=== PATIENT | male | born 1940 | race Caucasian/White ===

== ENCOUNTER → 2016-12-09 | Outpatient (CLI) | payer OTHER | LOC: RAD 13:30 | PROVIDERS: ATTEND Clinical Nurse Specialist Adult Health | DX: M25.511 Pain in right shoulder (principal) ==

== ENCOUNTER 2017-08-17 15:05 | Observation (INO) | payer OTHER, MEDICARE ==
--- NOTE | 2017-08-17 15:43 | ER Document Report ---
ED Medical Screen (RME) - General Chief Complaint: Dizziness Stated Complaint: DIZZINESS Time Seen by Provider: 08/17/17 15:42 Notes: Patient states yesterday he went to stand and his knees buckled and he fell to the ground but only made it on his knees. He denies head injury. Patient is on a blood thinner, Xarelto. Patient went to see his primary care physician at the [facility] today for a routine checkup. Primary care physician felt the patient had altered mental status and referred him to the emergency department. Patient states that he just feels weak and nauseated. TRAVEL OUTSIDE OF THE [place] IN LAST 30 DAYS: No - Related Data Allergies/Adverse Reactions: Influenza Virus Vaccines [Influenza Virus Vaccine] Allergy (Severe, Verified 15:07) severe flu symptoms Past Medical History - Past Medical History Cardiac Medical History: Reports: Hx Hypercholesterolemia, Hx Hypertension - medicated Denies: Hx Heart Attack Pulmonary Medical History: Reports: Hx COPD Denies: Hx Asthma Neurological Medical History: Denies: Hx Seizures Endocrine Medical History: Reports: Hx Diabetes Mellitus Type 2 GI Medical History: Denies: Hx Hiatal Hernia, Hx Ulcer Musculoskeltal Medical History: Reports Hx Arthritis Psychiatric Medical History: Denies: Hx Depression Past Surgical History: Reports: Hx Cholecystectomy. Denies: Hx Open Heart Surgery - Immunizations Hx Diphtheria, Pertussis, Tetanus Vaccination: Yes Physical Exam - Vital signs Vitals: Temp Pulse Resp BP Pulse Ox 98.4 F 90 17 152/71 H 97 08/17/17 15:15 08/17/17 15:15 08/17/17 15:15 08/17/17 15:15 08/17/17 15:15 Course - Vital Signs Vital signs: Temp Pulse Resp BP Pulse Ox 98.4 F 90 17 152/71 H 97 08/17/17 15:15 08/17/17 15:15 08/17/17 15:15 08/17/17 15:15 08/17/17 15:15
--- NOTE | 2017-08-17 16:11 | RADIOLOGY REPORT (SQ) ---
EXAM DESCRIPTION: CT HEAD WITHOUT COMPLETED DATE/TIME: 08/17/2017 3:57 pm REASON FOR STUDY: fall/ams COMPARISON: CT brain 11/29/2006 TECHNIQUE: Axial images acquired through the brain without intravenous contrast. Images reviewed wi th bone, brain and subdural windows. Images stored on PACS. All CT scanners at this facility use dose modulation, iterative reconstruction, and/or weight based d osing when appropriate to reduce radiation dose to as low as reasonably achievable (ALARA). [facility]: Dose Right [facility]: CareDose [facility]: Dose Right [facility]: Teradose 4D [facility]: Smart mDialog RADIATION DOSE: CT Rad equipment meets quality standard of care and radiation dose reduction techniq ues were employed. CTDIvol: 64.6 mGy. DLP: 1292 mGy-cm. mGy. LIMITATIONS: None. FINDINGS: VENTRICLES: Normal size and contour. CEREBRUM: No masses. No hemorrhage. No midline shift. No evidence for acute infarction. Normal gra y/white matter differentiation. No areas of low density in the white matter. CEREBELLUM: No masses. No hemorrhage. No alteration of density. No evidence for acute infarction. EXTRAAXIAL SPACES: No fluid collections. No masses. ORBITS AND GLOBE: No intra- or extraconal masses. Normal contour of globe without masses. CALVARIUM: No fracture. PARANASAL SINUSES: No fluid or mucosal thickening. SOFT TISSUES: No mass or hematoma. OTHER: Heavy atherosclerotic calcification of the distal left intracranial vertebral artery and basil ar artery, heavy atherosclerotic calcification of the parasellar carotid arteries. Advanced left fac et arthropathy at C2-3 IMPRESSION: No acute findings EVIDENCE OF ACUTE STROKE: NO. COMMENT: Quality ID # [id number]: Final reports with documentation of one or more dose reduction techniques (e.g., Automated exposure control, adjustment of the mA and/or kV according to patient size, use of iterative reconstruction technique) TECHNICAL DOCUMENTATION: JOB ID: [id number] [employer]- All Rights Reserved
[2017-08-17 16:54] LABS: ABSOLUTE BASOPHILS # (AUTO) 0.1 10^3/uL (0.0-0.2); ABSOLUTE EOSINOPHILS # (AUTO) 0.2 10^3/uL (0.0-0.6); ABSOLUTE LYMPHOCYTES (AUTO) 3.3 10^3/uL (0.5-4.7); ABSOLUTE MONOCYTES (AUTO) 0.9 10^3/uL (0.1-1.4); ABSOLUTE NEUT (AUTO) 4.8 10^3/uL (1.7-8.2); BASOPHILS % (AUTO) 0.6 % (0-2); EOSINOPHILS % (AUTO) 2.4 % (0-6); HEMATOCRIT 46.5 % (37.9-51.0); HEMOGLOBIN 15.8 g/dL (13.5-17.0); LYMPHOCYTES % (AUTO) 35.8 % (13-45); MEAN CORPUSCULAR HEMOGLOBIN 30.5 pg (27.0-33.4); MEAN CORPUSCULAR VOLUME 90 fl (80-97); PLATELET COUNT 303 10^3/uL (150-450); RED BLOOD COUNT 5.19 10^6/uL (4.35-5.55); RED CELL DISTRIBUTION WIDTH 14.2 % (11.5-14.0); SEGMENTED NEUTROPHILS % (AUTO) 51.2 % (42-78); TOTAL CELLS COUNTED % (AUTO) 100 %; WHITE BLOOD COUNT 9.3 10^3/uL (4.0-10.5)
[2017-08-17 17:02] LABS: APPEARANCE,URINE SLIGHTLY-CLOUDY; BILIRUBIN,URINE NEGATIVE (NEGATIVE); COLOR,URINE YELLOW; GLUCOSE, URINE >=500 mg/dL (NEGATIVE); KETONES,URINE NEGATIVE (NEGATIVE); LEUKOCYTE ESTERASE,URINE NEGATIVE (NEGATIVE); NITRITE,URINE NEGATIVE (NEGATIVE); PROTEIN,URINE NEGATIVE (NEGATIVE); URINE SPECIFIC GRAVITY 1.013; UROBILINOGEN,URINE NEGATIVE mg/dL (<2.0)
[2017-08-17 17:12] LABS: ALANINE AMINOTRANSFERASE 26 U/L (21-72); ALBUMIN 4.6 g/dL (3.5-5.0); ALKALINE PHOSPHATASE 102 U/L (38-126); ANION GAP 10 (5-19); ASPARTATE AMINO TRANSFERASE 7 U/L (17-59); BILIRUBIN,DIRECT 0.2 mg/dL (0.0-0.4); BILIRUBIN,TOTAL 0.5 mg/dL (0.2-1.3); BLOOD UREA NITROGEN 25 mg/dL (7-20); CALCIUM 10.9 mg/dL (8.4-10.2); CARBON DIOXIDE 29 mmol/L (22-30); CHLORIDE 102 mmol/L (98-107); GLUCOSE 186 mg/dL (75-110); TOTAL PROTEIN 7.4 g/dL (6.3-8.2)
--- NOTE | 2017-08-17 17:26 | ER Document Report ---
ED Dizziness/Weakness - General Chief Complaint: Dizziness Stated Complaint: DIZZINESS Time Seen by Provider: 08/17/17 15:42 Notes: Patient states that yesterday he was dizzy. Had a near syncopal episode. Never had this happen before. Chest pain, fever, chills, sweats pretty. Today he began to have some nausea. Does not know why he feels this way. Does have a history of diabetes. Followed by at the [facility]. Was seen over there and sent here for further evaluation. TRAVEL OUTSIDE OF THE [place] IN LAST 30 DAYS: No - HPI Patient complains to provider of: Dizziness, Near-syncope Onset: Yesterday Onset/Duration: Gradual Severity: Moderate Pain Level: 3 Context: Vertigo. denies: Chronic dizziness, Trauma Associated symptoms: Nausea Exacerbated by: denies: Change in position, Movement of head Baseline gait: Uses a cane - Related Data Allergies/Adverse Reactions: Influenza Virus Vaccines [Influenza Virus Vaccine] Allergy (Severe, Verified 15:07) severe flu symptoms Past Medical History - General Information source: Patient - Social History Smoking Status: Former Smoker Chew tobacco use (# tins/day): No Frequency of alcohol use: None Drug Abuse: None Lives with: Family Family History: CVA, Hypertension Patient has suicidal ideation: No Patient has homicidal ideation: No - Past Medical History Cardiac Medical History: Reports: Hx Hypercholesterolemia, Hx Hypertension - medicated Denies: Hx Heart Attack Pulmonary Medical History: Reports: Hx COPD Denies: Hx Asthma Neurological Medical History: Denies: Hx Seizures Endocrine Medical History: Reports: Hx Diabetes Mellitus Type 2 Renal/ Medical History: Denies: Hx Peritoneal Dialysis GI Medical History: Denies: Hx Hiatal Hernia, Hx Ulcer Musculoskeltal Medical History: Reports Hx Arthritis Psychiatric Medical History: Denies: Hx Depression Past Surgical History: Reports: Hx Cholecystectomy. Denies: Hx Open Heart Surgery - Immunizations Hx Diphtheria, Pertussis, Tetanus Vaccination: Yes Review of Systems - Review of Systems Constitutional: Weakness. denies: Fever, Malaise EENT: denies: Blurred vision, Double vision, Nose congestion, Mouth swelling Cardiovascular: Syncope, Dizziness, Lightheaded. denies: Chest pain, Palpitations, Heart racing, Orthopnea, Dyspnea Respiratory: denies: Cough, Hurts to breathe, Hemoptysis, Short of breath Gastrointestinal: Nausea. denies: Abdominal pain, Diarrhea, Vomiting, Constipation, Blood streaked bowels Genitourinary: denies: Dysuria, Discharge, Flank pain Musculoskeletal: Back pain. denies: Gout, Joint pain, Joint swelling, Muscle stiffness, Neck pain Skin: denies: Dryness, Lesions, Lumps, Rash Hematologic/Lymphatic: Blood clots. denies: Anemia, Easy bleeding, Easy bruising Neurological/Psychological: Weakness. denies: Dementia, Depression, Lost consciousness, Speech impairment, Numbness Physical Exam - Vital signs Vitals: Temp Pulse Resp BP Pulse Ox 98.4 F 90 17 152/71 H 97 08/17/17 15:15 08/17/17 15:15 08/17/17 15:15 08/17/17 15:15 08/17/17 15:15 Interpretation: Normal - General General appearance: Appears well, Alert - HEENT Head: Normocephalic, Atraumatic Eyes: Normal Pupils: PERRL - Respiratory Respiratory status: No respiratory distress Chest status: Nontender Breath sounds: Normal Chest palpation: Normal - Cardiovascular Rhythm: Regular Heart sounds: Normal auscultation Murmur: No - Abdominal Inspection: Normal Distension: No distension Bowel sounds: Normal Tenderness: Nontender Organomegaly: No organomegaly - Back Back: Normal, Nontender - Extremities General upper extremity: Normal inspection, Nontender, Normal color, Normal ROM , Normal temperature General lower extremity: Normal inspection, Nontender, Normal color, Normal ROM , Normal temperature, Normal weight bearing. No: Victor Hugo's sign - Neurological Neuro grossly intact: Yes Cognition: Normal Orientation: AAOx4 [place] Coma Scale Eye Opening: Spontaneous [place] Coma Scale Verbal: Oriented [place] Coma Scale Motor: Obeys Commands [place] Coma Scale Total: 15 Speech: Normal Motor strength normal: LUE, RUE, LLE, RLE Sensory: Normal - Psychological Associated symptoms: Normal affect, Normal mood - Skin Skin Temperature: Warm Skin Moisture: Dry Skin Color: Normal Course - Re-evaluation Re-evalutation: 08/17/17 18:03 Patient with elevated potassium. Started on Kayexalate and calcium gluconate. IV fluids. Patient will need to be admitted to have his labs rechecked. Does not appear to be in acute renal failure. Creatinine is slightly elevated than prior. EKG unremarkable. Consulted hospitalist, Dr. Gonzalez who agrees to admit at this time. - Vital Signs Vital signs: Temp Pulse Resp BP Pulse Ox 98.4 F 90 17 152/71 H 97 08/17/17 15:15 08/17/17 15:15 08/17/17 15:15 08/17/17 15:15 08/17/17 15:15 - Laboratory Result Diagrams: 08/17/17 16:25 08/17/17 16:25 Laboratory results interpreted by me: 08/17/17 08/17/17 08/17/17 16:25 16:25 16:30 RDW 14.2 H Potassium 6.4 H* BUN 25 H Creatinine 1.42 H Est GFR ( Amer) 58 L Est GFR (Non-Af Amer) 48 L Glucose 186 H Calcium 10.9 H AST 7 L Urine Glucose (UA) >=500 H Urine Ascorbic Acid 40 H - EKG Interpretation by Me EKG shows normal: Sinus rhythm, Stuart, Intervals, QRS Complexes, ST-T Waves Discharge - Discharge Clinical Impression: Hyperkalemia, Near syncope Disposition: ADMITTED INPATIENT Admitting Provider: Dr. Gonzalez Unit Admitted: Telemetry - Dr. Gonzalez
[2017-08-17 17:28] LABS: POTASSIUM 6.4 mmol/L (3.6-5.0)
[2017-08-17] MEDS ORDERED: NORMAL SALINE 1000 ML 1,000 ML IV ONE (17:58)
[2017-08-17] MEDS ORDERED: SODIUM POLYSTYRENE SULFONATE 15 GM/60 ML PO ONE (17:58)
[2017-08-17] MEDS ORDERED: CALCIUM GLUCONATE 1000 MG/10 ML INJ IV ONE (17:58)
[2017-08-17 18:21] LABS: INTERNATIONAL RATION (INR) 1.24; PARTIAL THROMBOPLASTIN TIME 33.3 SEC (23.5-35.8); PROTHROMBIN TIME 16.5 SEC (11.4-15.4)
[2017-08-17] MEDS ORDERED: ACETAMINOPHEN 325 MG TABLET PO PRN (18:35)
[2017-08-17] MEDS ORDERED: MAG HYDROX/AL HYDROX/SIMETH SUSP 30 ML UDCUP PO PRN (18:35)
[2017-08-17] MEDS ORDERED: OXYCODONE-ACETAMINOPHEN 5-325 MG TABLET PO PRN (18:35)
[2017-08-17] MEDS ORDERED: TEMAZEPAM 15 MG CAPSULE PO PRN (18:35)
[2017-08-17] MEDS ORDERED: MAGNESIUM HYDROXIDE SUSP 30 ML UDCUP PO PRN (18:35)
[2017-08-17] MEDS ORDERED: DIAZEPAM 5 MG TABLET PO PRN (18:40)
[2017-08-17] MEDS ORDERED: DEXTROSE 50%-WATER 25 GM/50 ML DISP.SYRIN IV PRN ×2 (18:58)
[2017-08-17] MEDS ORDERED: INSULIN LISPRO 100 UNIT/ML 3 ML VIAL SUBCUT PRN (18:58)
[2017-08-17] MEDS ORDERED: GLUCAGON,HUMAN RECOMB 1 MG INJ IM PRN (18:58)
[2017-08-17] MEDS ORDERED: DEXTROSE 40% GEL 15 GM TUBE PO PRN ×2 (18:58)
--- NOTE | 2017-08-17 19:02 | PDOC H&P ---
History of Present Illness Admission Date/PCP: 08/17/17 18:24 Patient complains of: dizziness History of Present Illness: JOHANNE FREEMAN is a 77 year old male with a one day history of dizziness with standing. he reports a "loss of equilibrium". He experiences a "floating" sensation. Other than standing, he knows of no other exacerbating factors. Sitting or laying supine relieves his symptoms. He experienced nausea without vomiting. He does not have a history of similar symptoms. He has no hearing or other visual complaints. He describes a "buzzing" in his ears since [place] War. He was seen by his primary care at the [facility], who recommended that he come to the ED for further evaluation. Past Medical History Cardiac Medical History: Reports: Hyperlipidema, Hypertension - medicated Denies: Myocardial Infarction Pulmonary Medical History: Reports: Chronic Obstructive Pulmonary Disease (COPD) Denies: Asthma Neurological Medical History: Denies: Seizures Endocrine Medical History: Reports: Diabetes Mellitus Type 2 GI Medical History: Denies: Hiatal Hernia Musculoskeltal Medical History: Reports: Arthritis Psychiatric Medical History: Denies: Depression Hematology: Denies: Anemia, Sickle Cell Disease Past Surgical History Past Surgical History: Reports: Cholecystectomy Social History Information Source: Patient Lives with: Family Smoking Status: Former Smoker Frequency of Alcohol Use: None Hx Recreational Drug Use: No Drugs: None Hx Prescription Drug Abuse: No - Advance Directive Resuscitation Status: Full Code Family History Family History: CVA, Hypertension Parental Family History Reviewed: No Children Family History Reviewed: No Sibling(s) Family History Reviewed.: No Medication/Allergy Allergies/Adverse Reactions: Influenza Virus Vaccines [Influenza Virus Vaccine] Allergy (Severe, Verified 15:07) severe flu symptoms Review of Systems Constitutional: ABSENT: chills, fever(s) Cardiovascular: ABSENT: chest pain, dyspnea on exertion, orthropnea, palpitations Respiratory: ABSENT: cough, dyspnea Gastrointestinal: PRESENT: nausea. ABSENT: abdominal pain, vomiting Neurological: ABSENT: abnormal gait, abnormal speech, confusion, dizziness, focal weakness, syncope Psychiatric: ABSENT: anxiety, depression, homidical ideation, suicidal ideation Physical Exam Vital Signs: Temp Pulse Resp BP Pulse Ox 98.4 F 90 17 152/71 H 97 08/17/17 15:15 08/17/17 15:15 08/17/17 15:15 08/17/17 15:15 08/17/17 15:15 General appearance: PRESENT: no acute distress, obese Head exam: PRESENT: atraumatic, normocephalic Eye exam: PRESENT: EOMI, PERRLA Mouth exam: PRESENT: moist, neck supple Neck exam: PRESENT: full ROM. ABSENT: carotid bruit, JVD, meningismus, tenderness Respiratory exam: PRESENT: clear to auscultation markos, unlabored. ABSENT: accessory muscle use Cardiovascular exam: PRESENT: RRR. ABSENT: diastolic murmur, rubs, systolic murmur GI/Abdominal exam: PRESENT: normal bowel sounds, soft. ABSENT: distended, guarding, mass, organolmegaly, rebound, tenderness Rectal exam: PRESENT: deferred Extremities exam: PRESENT: +1 edema Musculoskeletal exam: PRESENT: ambulatory, normal inspection Neurological exam: PRESENT: alert, awake, oriented to person, oriented to place , oriented to time, oriented to situation, CN II-XII grossly intact. ABSENT: motor sensory deficit Psychiatric exam: PRESENT: appropriate affect, normal mood. ABSENT: homicidal ideation, suicidal ideation Skin exam: PRESENT: dry, intact, warm. ABSENT: cyanosis, rash Results Impressions: Head CT 08/17/17 15:42 IMPRESSION: No acute findings EVIDENCE OF ACUTE STROKE: NO. Assessment & Plan - Diagnosis (1) Hyperkalemia Is this a current diagnosis for this admission?: Yes Plan: Hold VICENTE-I, and NSAID. Treated in the ED. Recheck. (2) Near syncope Is this a current diagnosis for this admission?: Yes Plan: Need to r/o cerebellar disease. MRI head ordered. Check orthostatics. (3) Diabetes 1.5, managed as type 2 Is this a current diagnosis for this admission?: Yes Plan: continue home meds. (4) Essential hypertension Is this a current diagnosis for this admission?: Yes Plan: BP okay. monitor renal function. He may benefit from an alternate med depending on renal function. (5) Osteoarthritis Is this a current diagnosis for this admission?: Yes (6) Peripheral neuropathy Qualifiers: Peripheral neuropathy type: polyneuropathy, other Qualified Code(s): G62.89 - Other specified polyneuropathies Is this a current diagnosis for this admission?: Yes (7) Pulmonary embolism Qualifiers: Pulmonary embolism type: other Chronicity: acute Acute cor pulmonale presence: without acute cor pulmonale Qualified Code(s): I26.99 - Other pulmonary embolism without acute cor pulmonale Is this a current diagnosis for this admission?: No - Time Time Spent: 50 to 70 Minutes Medications reviewed and adjusted accordingly: Yes Anticipated discharge: Home - Inpatient Certification Based on my medical assessment, after consideration of the patient's comorbidities, presenting symptoms, or acuity I expect that the services needed warrant INPATIENT care.: Yes I certify that my determination is in accordance with my understanding of Medicare's requirements for reasonable and necessary INPATIENT services [42 CFR 412.3e].: Yes Medical Necessity: Significant Comorbidiites Make Outpatient Treatment Too Risky , Need Close Monitoring Due to Risk of Patient Decompensation, Need for Neurological Checks
[2017-08-17] MEDS ORDERED: ENOXAPARIN SODIUM INJ 40 MG/0.4 ML DISP.SYRIN SUBCUT ONE (19:30)
--- NOTE | 2017-08-17 21:13 | RADIOLOGY REPORT (SQ) ---
EXAM DESCRIPTION: MRI HEAD WITHOUT COMPLETED DATE/TIME: 08/17/2017 8:53 pm REASON FOR STUDY: dizziness COMPARISON: None. TECHNIQUE: Multiplanar imaging includes non-contrasted T1, T2, FLAIR, and diffusion with ADC map seq uences. Images stored on PACS. LIMITATIONS: None. FINDINGS: ANATOMY: No anomalies. Normal vascular flow voids. Pituitary fossa normal. CSF SPACES: Normal in size and contour. No hemorrhage. CEREBRUM: Sulci and gyri normal in size and contour. Normal white matter signal on FLAIR imaging. No evidence of hemorrhage, mass, or extraaxial fluid collection. POSTERIOR FOSSA: No signal alteration. No hemorrhage. No edema, masses or mass effect. Internal ubshra tory canals, cerebello-pontine angles, mastoids normal. DIFFUSION IMAGING: Negative for acute or sub-acute infarction. ORBITS: No masses. Globes normal. PARANASAL SINUSES: No fluid levels. Mucosa normal. OTHER: No other significant finding. IMPRESSION: Negative for acute or sub-acute infarction. Age-appropriate exam. EVIDENCE OF ACUTE STROKE: NO. TECHNICAL DOCUMENTATION: JOB ID: [id number] [place]-72 2010 [employer]- All Rights Reserved
[2017-08-18 08:48] LABS: ALANINE AMINOTRANSFERASE 22 U/L (21-72); ALBUMIN 4.2 g/dL (3.5-5.0); ALKALINE PHOSPHATASE 97 U/L (38-126); ANION GAP 13 (5-19); ASPARTATE AMINO TRANSFERASE 7 U/L (17-59); BILIRUBIN,DIRECT 0.3 mg/dL (0.0-0.4); BILIRUBIN,TOTAL 0.7 mg/dL (0.2-1.3); BLOOD UREA NITROGEN 20 mg/dL (7-20); CALCIUM 9.5 mg/dL (8.4-10.2); CARBON DIOXIDE 23 mmol/L (22-30); CHLORIDE 105 mmol/L (98-107); GLUCOSE 159 mg/dL (75-110); MAGNESIUM 1.4 mg/dL (1.6-2.3); PHOSPHORUS 3.3 mg/dL (2.5-4.5); SODIUM 140.5 mmol/L (137-145); TOTAL PROTEIN 6.6 g/dL (6.3-8.2)
[2017-08-18 08:57] LABS: POTASSIUM 4.5 mmol/L (3.6-5.0)
--- NOTE | 2017-08-18 09:19 | PDOC DISCHARGE SUMMARY ---
General - Admit/Disc Date/PCP Admission Date/Primary Care Provider: 08/17/17 18:24 Discharge Date: 08/18/17 - Discharge Diagnosis (1) Hyperkalemia Is this a current diagnosis for this admission?: Yes Summary: Treated. Resolved. (2) Near syncope Is this a current diagnosis for this admission?: Yes Summary: Vertigo. Resolved. (3) Diabetes 1.5, managed as type 2 Is this a current diagnosis for this admission?: Yes (4) Essential hypertension Is this a current diagnosis for this admission?: Yes (5) Osteoarthritis Is this a current diagnosis for this admission?: Yes (6) Peripheral neuropathy Is this a current diagnosis for this admission?: Yes (7) Pulmonary embolism Is this a current diagnosis for this admission?: No - Additional Information Resuscitation Status: Full Code Discharge Diet: Regular Discharge Activity: Activity As Tolerated Prescriptions: Diazepam [Valium 5 mg Tablet] 5 mg PO Q8 #15 tablet Home Medications: Amantadine HCl [Amantadine] 100 mg PO Q12 08/17/17 Apixaban [Eliquis 5 mg Tablet] 5 mg PO Q12 08/17/17 Cholecalciferol (Vitamin D3) [Vitamin D3 1000 Unit Tablet] 2,000 unit PO DAILY 08/17/17 Hydrochlorothiazide [Hydrodiuril 25 mg Tablet] 12.5 mg PO QAM 08/17/17 Insulin Glargine,Hum.rec.anlog [Lantus Solostar] 25 unit SQ QPM 08/17/17 Lisinopril [Prinivil] 20 mg PO DAILY 08/17/17 Methyl Salicylate/Menthol [Tio-Gutiérrez Analgesic [place] 29 gm] 1 applic TP BIDP PRN Simvastatin [Zocor 40 mg Tablet] 40 mg PO QHS 08/17/17 Terazosin HCl 1 mg PO QHS 08/17/17 Diazepam [Valium 5 mg Tablet] 5 mg PO Q8 #15 tablet 08/18/17 History of Present Illness History of Present Illness: JOHANNE FREEMAN is a 77 year old male with a one day history of dizziness with standing. He reported a "loss of equilibrium". He experienced a "floating" sensation. Other than standing, he knows of no other exacerbating factors. Sitting or laying supine relieves his symptoms. He experienced nausea without vomiting. He does not have a history of similar symptoms. He has no hearing or other visual complaints. He describes a "buzzing" in his ears since his participation in the [place] War. He was seen by his primary care at the [facility] on the day of admission who recommended that he come to the ED for further evaluation. Hospital Course Hospital Course: Mr. Caruso was admitted secondary to vertiginous symptoms. He underwent a brain MRI. There were no acute abnormalities noted. He was given Valium 10 mg by mouth prior to the imaging. Following the scan, his symptoms resolved. I suspect that he may have benefited from the Valium. Furthermore, the neck and shoulder tightness that he was experiencing at the time of admission, resolved. On admission, he had an elevated potassium as well as a mildly elevated creatinine. He was treated with Kayexalate. His hyperkalemia resolved. With gentle hydration, his creatinine came down to normal. His hospital stay was uneventful. At the time of discharge, he was asymptomatic. Physical Exam Vital Signs: Temp Pulse Resp BP Pulse Ox 98.3 F 73 16 125/65 99 08/18/17 08:18 08/18/17 08:18 08/18/17 08:18 08/18/17 08:18 08/18/17 08:18 Intake & Output 08/17/17 08/18/17 08/19/17 06:59 06:59 06:59 Intake Total 100 Balance 100 Weight 109.6 kg General appearance: PRESENT: no acute distress, well-developed, well-nourished Head exam: PRESENT: atraumatic, normocephalic Neck exam: ABSENT: carotid bruit, JVD, lymphadenopathy, thyromegaly Respiratory exam: PRESENT: clear to auscultation markos. ABSENT: rales, rhonchi, wheezes Cardiovascular exam: PRESENT: RRR. ABSENT: diastolic murmur, rubs, systolic murmur GI/Abdominal exam: PRESENT: normal bowel sounds, soft. ABSENT: distended, guarding, mass, organolmegaly, rebound, tenderness Musculoskeletal exam: PRESENT: ambulatory Neurological exam: PRESENT: alert, awake, oriented to person, oriented to place , oriented to time, oriented to situation, CN II-XII grossly intact. ABSENT: motor sensory deficit Psychiatric exam: PRESENT: appropriate affect, normal mood. ABSENT: homicidal ideation, suicidal ideation Results Laboratory Results: 08/18/17 08:00 08/18/17 08:00 Sodium 140.5 Potassium 4.5 D Chloride 105 Carbon Dioxide 23 Anion Gap 13 BUN 20 Creatinine 1.24 Est GFR ( Amer) > 60 Est GFR (Non-Af Amer) 56 L Glucose 159 H Calcium 9.5 Phosphorus 3.3 Magnesium 1.4 L Total Bilirubin 0.7 AST 7 L ALT 22 Alkaline Phosphatase 97 Total Protein 6.6 Albumin 4.2 Impressions: Head MRI 08/17/17 00:00 IMPRESSION: Negative for acute or sub-acute infarction. Age-appropriate exam. EVIDENCE OF ACUTE STROKE: NO. Head CT 08/17/17 15:42 IMPRESSION: No acute findings EVIDENCE OF ACUTE STROKE: NO. Qualifiers PATEINT BEING DISCHARGED WITH ANY OF THE FOLLOWING DIAGNOSIS?: No Plan Time Spent: Less than 30 Minutes
[2017-08-18 09:40] VITALS: BP 132/82
[2017-08-18] MEDS ORDERED: MAGNESIUM OXIDE 400 MG TABLET PO SCH (10:00)
[2017-08-18] MEDS ORDERED: ENOXAPARIN SODIUM INJ 40 MG/0.4 ML DISP.SYRIN SUBCUT SCH (10:00)
--- NOTE | 2017-08-18 12:02 | EKG REPORT ---
SEVERITY:- NORMAL ECG - SINUS RHYTHM : Confirmed by: Nilsa Brown 18-Aug-2017 12:01:39
== END 2017-08-18 11:37 | disposition home or self-care (01) ==
LOC: ER 15:05 → EH 18:24 → INTOOBSV 18:24 → 4S 08-18 03:30
PROVIDERS: ADMIT Internal Medicine; ATTEND Internal Medicine
DX: R55 Syncope and collapse (principal); E87.5 Hyperkalemia; E11.42 Type 2 diabetes mellitus with diabetic polyneuropathy; I10 Essential (primary) hypertension; M19.90 Unspecified osteoarthritis, unspecified site; I26.99 Other pulmonary embolism without acute cor pulmonale; R11.0 Nausea; H93.13 Tinnitus, bilateral; Y36.90XS War operations, unspecified, sequela; E78.5 Hyperlipidemia, unspecified; M54.9 Dorsalgia, unspecified; R60.9 Edema, unspecified; Z79.4 Long term (current) use of insulin; Z79.899 Other long term (current) drug therapy; Z90.49 Acquired absence of other specified parts of digestive tract; Z82.3 Family history of stroke; Z82.49 Family history of ischemic heart disease and other diseases of the circulatory system; Z87.891 Personal history of nicotine dependence; Z79.02 Long term (current) use of antithrombotics/antiplatelets
CPT/HCPCS: 93005; 99285; 36415 ×2; 82962 ×2; 83735; 84100; 85025; 85610; 85730; 80053 ×2; 81001; 84484; 70551; 70450; 93010; G0378 ×3; J0610; J1650; J7030

== ENCOUNTER 2018-02-16 10:16 | Observation (INO) | payer OTHER, MEDICARE ==
--- NOTE | 2018-02-16 10:33 | ER Document Report ---
ED General - General Chief Complaint: Near Syncope Stated Complaint: NEAR SYNCOPE Time Seen by Provider: 02/16/18 10:32 TRAVEL OUTSIDE OF THE [place] IN LAST 30 DAYS: No - Related Data Allergies/Adverse Reactions: Influenza Virus Vaccines [Influenza Virus Vaccine] Allergy (Severe, Verified 15:07) severe flu symptoms Past Medical History - Social History Smoking Status: Former Smoker Family History: Reviewed & Not Pertinent, CVA, Hypertension - Past Medical History Cardiac Medical History: Reports: Hx Hypercholesterolemia, Hx Hypertension Denies: Hx Heart Attack Pulmonary Medical History: Reports: Hx COPD Denies: Hx Asthma Neurological Medical History: Denies: Hx Seizures Endocrine Medical History: Reports: Hx Diabetes Mellitus Type 2 Renal/ Medical History: Denies: Hx Peritoneal Dialysis GI Medical History: Denies: Hx Hiatal Hernia, Hx Ulcer Musculoskeletal Medical History: Reports Hx Arthritis Psychiatric Medical History: Reports: Hx Depression Past Surgical History: Reports: Hx Cholecystectomy. Denies: Hx Open Heart Surgery - Immunizations Hx Diphtheria, Pertussis, Tetanus Vaccination: Yes Physical Exam - Vital signs Vitals: Resp BP Pulse Ox 18 116/66 90 L 02/16/18 10:43 02/16/18 10:43 02/16/18 10:43 Course - Re-evaluation Re-evalutation: 02/16/18 13:38 -year-old male who is afebrile, presented with hypotension but has since normalized and in no distress for evaluation of near syncopal events. CBC negative for leukocytosis or anemia. CMP shows a creatinine of 1.86 which is elevated from July which his creatinine is 1.24 his BUN is 30 today. Potassium is 5.0 first set of cardiac enzymes were negative. EKG negative for STEMI. Chest x-ray unremarkable. Patient vomited this morning though he states he has not felt nauseous since he has been in the emergency room. Patient has received 2 L of fluid here in the emergency room and a liter with EMS. Patient was seen in July 2017 for near syncopal event with hyperkalemia , MRI was done of his brain which was negative, patient did not have a echocardiogram nor a carotid ultrasounds at that time. Patient is denying chest pain or shortness of breath. Patient does not have a history of renal failure. Patient had his Parkinson medication change approximately 2-3 weeks ago, patient felt that this may have been the cause of his lightheadedness but is unsure. Parkinson medication is actually decreased in strength. Denies any other medications. Discussed case with Dr. Cas Zhong, ER attending, who agreed patient to be considered for admission. Ping Linares NP, will admit patient to telemetry for under medical service for evaluation of near syncopal event and acute renal failure. Vitals remained stable, patient denies any pain. patient verbalizes understanding and agrees with plan of care. All questions and concerns answered by this provider. - Vital Signs Vital signs: Temp Pulse Resp BP Pulse Ox 97.9 F 95 14 126/73 H 97 02/16/18 11:15 02/16/18 12:05 02/16/18 11:16 02/16/18 12:05 02/16/18 11:16 - Laboratory Result Diagrams: 02/16/18 10:36 02/16/18 10:36 Laboratory results interpreted by me: 02/16/18 02/16/18 02/16/18 10:36 10:36 10:36 WBC 12.5 H RDW 14.4 H Absolute Neutrophils 8.6 H Carbon Dioxide 21 L BUN 30 H Creatinine 1.83 H Est GFR ( Amer) 43 L Est GFR (Non-Af Amer) 36 L Glucose 164 H Magnesium 1.5 L AST 8 L ALT 18 L Alkaline Phosphatase 135 H Creatine Kinase 46 L Discharge - Discharge Clinical Impression: Near syncope Acute renal failure Qualifiers: Acute renal failure type: unspecified Qualified Code(s): N17.9 - Acute kidney failure, unspecified Condition: Stable Admitting Provider: Hospitalist - Ping Linares NP Unit Admitted: Telemetry Referrals: YOLI CUEVAS MD [COMMUNITY BASED STAFF] - Follow up in 3-5 days
[2018-02-16 10:55] LABS: ABSOLUTE BASOPHILS # (AUTO) 0.1 10^3/uL (0.0-0.2); ABSOLUTE EOSINOPHILS # (AUTO) 0.2 10^3/uL (0.0-0.6); ABSOLUTE LYMPHOCYTES (AUTO) 2.3 10^3/uL (0.5-4.7); ABSOLUTE MONOCYTES (AUTO) 1.3 10^3/uL (0.1-1.4); ABSOLUTE NEUT (AUTO) 8.6 10^3/uL (1.7-8.2); BASOPHILS % (AUTO) 0.5 % (0-2); EOSINOPHILS % (AUTO) 1.9 % (0-6); HEMATOCRIT 44.1 % (37.9-51.0); HEMOGLOBIN 14.9 g/dL (13.5-17.0); LYMPHOCYTES % (AUTO) 18.2 % (13-45); MEAN CORPUSCULAR HEMOGLOBIN 30.4 pg (27.0-33.4); MEAN CORPUSCULAR HGB CONC 33.8 g/dL (32.0-36.0); MEAN CORPUSCULAR VOLUME 90 fl (80-97); MONOCYTES % (AUTO) 10.3 % (3-13); PLATELET COUNT 238 10^3/uL (150-450); RED BLOOD COUNT 4.89 10^6/uL (4.35-5.55); RED CELL DISTRIBUTION WIDTH 14.4 % (11.5-14.0); SEGMENTED NEUTROPHILS % (AUTO) 69.1 % (42-78); TOTAL CELLS COUNTED % (AUTO) 100 %; WHITE BLOOD COUNT 12.5 10^3/uL (4.0-10.5)
[2018-02-16 11:07] LABS: ALANINE AMINOTRANSFERASE 18 U/L (21-72); ALBUMIN 4.1 g/dL (3.5-5.0); ALKALINE PHOSPHATASE 135 U/L (38-126); ANION GAP 17 (5-19); ASPARTATE AMINO TRANSFERASE 8 U/L (17-59); BILIRUBIN,DIRECT 0.3 mg/dL (0.0-0.4); BLOOD UREA NITROGEN 30 mg/dL (7-20); CALCIUM 9.3 mg/dL (8.4-10.2); CARBON DIOXIDE 21 mmol/L (22-30); CHLORIDE 105 mmol/L (98-107); CREATINE KINASE 46 U/L (55-170); GLUCOSE 164 mg/dL (75-110); SODIUM 143.4 mmol/L (137-145); TOTAL PROTEIN 7.3 g/dL (6.3-8.2)
[2018-02-16 11:25] LABS: CREATINE KINASE MB 0.83 ng/mL (<4.55); TROPONIN I < 0.012 ng/mL
--- NOTE | 2018-02-16 11:29 | RADIOLOGY REPORT (SQ) ---
EXAM DESCRIPTION: CHEST SINGLE VIEW COMPLETED DATE/TIME: 02/16/2018 11:03 am REASON FOR STUDY: LH COMPARISON: 02/16/2018 EXAM PARAMETERS: NUMBER OF VIEWS: One view. TECHNIQUE: Single frontal radiographic view of the chest acquired. RADIATION DOSE: NA LIMITATIONS: None. FINDINGS: LUNGS AND PLEURA: No opacities, masses or pneumothorax. No pleural effusion. MEDIASTINUM AND HILAR STRUCTURES: No masses. Contour normal. HEART AND VASCULAR STRUCTURES: Heart normal in size. Normal vasculature. BONES: No acute findings. HARDWARE: None in the chest. OTHER: No other significant finding. IMPRESSION: NO ACUTE RADIOGRAPHIC FINDING IN THE CHEST. TECHNICAL DOCUMENTATION: JOB ID: [id number] [employer]- All Rights Reserved Reading location - IP/workstation name: [email or web address]
[2018-02-16 11:42] LABS: LIPASE 92.8 U/L (23-300)
--- NOTE | 2018-02-16 11:42 | RADIOLOGY REPORT (SQ) ---
EXAM DESCRIPTION: CT HEAD WITHOUT COMPLETED DATE/TIME: 02/16/2018 11:32 am REASON FOR STUDY: near syncope COMPARISON: 08/17/2017 TECHNIQUE: Axial images acquired through the brain without intravenous contrast. Images reviewed wi th bone, brain and subdural windows. Additional sagittal and coronal reconstructions were generated. Images stored on PACS. All CT scanners at this facility use dose modulation, iterative reconstruction, and/or weight based d osing when appropriate to reduce radiation dose to as low as reasonably achievable (ALARA). [facility]: Dose Right [facility]: CareDose [facility]: Dose Right [facility]: Teradose 4D [facility]: Smart Technologies RADIATION DOSE: CT Rad equipment meets quality standard of care and radiation dose reduction techniq ues were employed. CTDIvol: 53.2 mGy. DLP: 1070 mGy-cm. mGy. LIMITATIONS: None. FINDINGS: VENTRICLES: Normal size and contour. CEREBRUM: No masses. No hemorrhage. No midline shift. No evidence for acute infarction. Normal gra y/white matter differentiation. No areas of low density in the white matter. CEREBELLUM: No masses. No hemorrhage. No alteration of density. No evidence for acute infarction. EXTRAAXIAL SPACES: No fluid collections. No masses. ORBITS AND GLOBE: No intra- or extraconal masses. Normal contour of globe without masses. CALVARIUM: No fracture. PARANASAL SINUSES: No fluid or mucosal thickening. SOFT TISSUES: No mass or hematoma. OTHER: No other significant finding. IMPRESSION: NORMAL BRAIN CT WITHOUT CONTRAST. EVIDENCE OF ACUTE STROKE: NO. COMMENT: Quality ID # [id number]: Final reports with documentation of one or more dose reduction techniques (e.g., Automated exposure control, adjustment of the mA and/or kV according to patient size, use of iterative reconstruction technique) TECHNICAL DOCUMENTATION: JOB ID: [id number] [employer]- All Rights Reserved Reading location - IP/workstation name: [email or web address]
[2018-02-16] MEDS ORDERED: NORMAL SALINE 1000 ML 1,000 ML IV PRN (12:11)
[2018-02-16] MEDS ORDERED: ONDANSETRON HCL INJ/PF 4 MG/2 ML SDV IV PRN (14:10)
[2018-02-16] MEDS ORDERED: ACETAMINOPHEN 325 MG TABLET PO PRN (14:10)
[2018-02-16] MEDS ORDERED: IPRATROPIUM/ALBUTEROL 0.5-2.5 MG/3 ML AMPUL NEB PRN (14:10)
[2018-02-16] MEDS ORDERED: MAGNESIUM HYDROXIDE SUSP 30 ML UDCUP PO PRN (14:10)
[2018-02-16] MEDS ORDERED: MAG HYDROX/AL HYDROX/SIMETH SUSP 30 ML UDCUP PO PRN (14:10)
[2018-02-16] MEDS ORDERED: METHYL SALICYLATE/MENTHOL BALM 29 GM TP PRN (14:13)
[2018-02-16] MEDS ORDERED: DEXTROSE 40% GEL 15 GM TUBE PO PRN ×2 (14:15)
[2018-02-16] MEDS ORDERED: GLUCAGON,HUMAN RECOMB 1 MG INJ IM PRN (14:15)
[2018-02-16] MEDS ORDERED: DEXTROSE 50%-WATER 25 GM/50 ML DISP.SYRIN IV PRN ×2 (14:15)
[2018-02-16] MEDS ORDERED: INSULIN LISPRO 100 UNIT/ML 3 ML VIAL SUBCUT PRN (14:15)
[2018-02-16] MEDS ORDERED: (PENDING PHARMACY ID) (Docusate Calcium [Docusate Calcium] 240 MG) PO PRN (16:07)
[2018-02-16] MEDS ORDERED: HYDRALAZINE HCL INJ/PF 20 MG/1 ML SDV IV PRN (16:27)
--- NOTE | 2018-02-16 16:40 | PDOC H&P ---
History of Present Illness Admission Date/PCP: 02/16/18 14:58 Patient complains of: Near syncope History of Present Illness: JOHANNE FREEMAN is a 78 year old male with a past medical history significant for insulin-dependent diabetes mellitus, PE, hypertension, hyperlipidemia, COPD (not home O2 dependent) and PTSD who presented to the emergency department from his primary care provider with a complaint of near syncope and found to be hypotensive with blood pressures 70s/40s that responded with fluid boluses; now 143/63. Per patient, he did not lose consciousness or exhibit seizure-like activity, but did feel lightheaded with tunnel vision, tinnitus, and nausea without emesis. He believes that his symptoms may be related to Requip; reports that he has had dizziness and intermittent nausea and vomiting when he takes this medication despite dose reduction. He also feels that this may be related to his COPD stating that he recently was told he did not qualify to home oxygen due to "being 1 point too high ". He does report that he felt short of breath prior to his near syncopal event at his primary care's office this morning. He denies recent fever, chills, body aches, chest pain, palpitations, orthopnea , cough, abdominal pain, diarrhea. Evaluation in the emergency department revealed AK I with a creatinine of 1.83 and BUN of 30 (baseline 1.24), mildly elevated bicarb (30), hypomagnesia (1.5), mild leukocytosis (WBCs 12.5), normal troponins 2, normal head CT and chest x- ray. He is referred to the hospitalist service for observational admission and management of BIRDIE and near syncopal event. Past Medical History Cardiac Medical History: Reports: Hyperlipidema, Hypertension Denies: Congestive Heart Failure, Coronary Artery Disease, Myocardial Infarction Pulmonary Medical History: Reports: Chronic Obstructive Pulmonary Disease (COPD) Denies: Asthma EENT Medical History: Reports: None Neurological Medical History: Denies: Ischemic CVA, Seizures Endocrine Medical History: Reports: Diabetes Mellitus Type 2 - Insulin-dependent Renal/ Medical History: Reports: None Malignancy Medical History: Reports: None GI Medical History: Denies: Diverticulitis, Gastroesophageal Reflux Disease, Hiatal Hernia Musculoskeltal Medical History: Reports: Arthritis Skin Medical History: Reports: None Psychiatric Medical History: Reports: Depression, Post Traumatic Stress Disorder Denies: Alcohol Dependency, Substance Abuse, Tobacco Dependency Traumatic Medical History: Reports: None Hematology: Denies: Anemia, Sickle Cell Disease Infectious Medical History: Reports: None Past Surgical History Past Surgical History: Reports: Cholecystectomy, Herniorrhaphy, Other - Prostate Social History Information Source: Patient Lives with: Alone Smoking Status: Former Smoker Last Time Smoked: 40 years ago Frequency of Alcohol Use: None Hx Recreational Drug Use: No Drugs: None Hx Prescription Drug Abuse: No - Advance Directive Resuscitation Status: Do Not Resuscitate Surrogate healthcare decision maker:: The patient's son, Leonel Freeman, Family History Family History: Reviewed & Not Pertinent, CVA, Hypertension Parental Family History Reviewed: Yes Children Family History Reviewed: Yes Sibling(s) Family History Reviewed.: Yes Medication/Allergy Home Medications: Amantadine HCl [Amantadine] 100 mg PO Q12 02/16/18 Cholecalciferol (Vitamin D3) [Vitamin D3 1000 Unit Tablet] 2,000 unit PO DAILY 02/16/18 Cyclobenzaprine HCl [Flexeril 10 mg Tablet] 10 mg PO QHS 02/16/18 Docusate Calcium 240 mg PO DAILYP PRN 02/16/18 Hydrochlorothiazide [Hydrodiuril 25 mg Tablet] 12.5 mg PO QAM 02/16/18 Insulin Glargine,Hum.rec.anlog [Lantus Solostar] 25 unit SQ QPM 02/16/18 Lisinopril [Prinivil 40 mg Tablet] 20 mg PO DAILY 02/16/18 Methyl Salicylate/Menthol [Tio-[employer] [place] 29 gm] 1 applic TP BIDP PRN Simvastatin [Zocor 40 mg Tablet] 40 mg PO QHS 02/16/18 Terazosin HCl 1 mg PO QHS 02/16/18 Allergies/Adverse Reactions: Influenza Virus Vaccines [Influenza Virus Vaccine] Allergy (Severe, Verified 15:07) severe flu symptoms Review of Systems Constitutional: PRESENT: weakness. ABSENT: chills, fever(s), headache(s), weight gain, weight loss Eyes: ABSENT: visual disturbances Ears: ABSENT: hearing changes Cardiovascular: PRESENT: dyspnea on exertion. ABSENT: chest pain, edema, orthropnea, palpitations Respiratory: ABSENT: cough, hemoptysis Gastrointestinal: PRESENT: nausea. ABSENT: abdominal pain, constipation, diarrhea, hematemesis, hematochezia, vomiting Genitourinary: ABSENT: dysuria, hematuria Musculoskeletal: ABSENT: joint swelling Integumentary: ABSENT: rash, wounds Neurological: PRESENT: syncope - Near, tingling, tremor(s), weakness. ABSENT: abnormal gait, abnormal speech, confusion, convulsions, dizziness, focal weakness Psychiatric: ABSENT: anxiety, depression, homidical ideation, suicidal ideation Endocrine: ABSENT: cold intolerance, heat intolerance, polydipsia, polyuria Hematologic/Lymphatic: ABSENT: easy bleeding, easy bruising Physical Exam Vital Signs: Temp Pulse Resp BP Pulse Ox 97.9 F 95 14 126/73 H 97 02/16/18 11:15 02/16/18 12:05 02/16/18 11:16 02/16/18 12:05 02/16/18 11:16 General appearance: PRESENT: no acute distress, cooperative, well-developed, well-nourished, other - Overweight Head exam: PRESENT: atraumatic, normocephalic Eye exam: PRESENT: conjunctiva pink, EOMI, PERRLA. ABSENT: scleral icterus Ear exam: PRESENT: normal external ear exam Mouth exam: PRESENT: moist, tongue midline Neck exam: ABSENT: carotid bruit, JVD, lymphadenopathy, thyromegaly Respiratory exam: PRESENT: clear to auscultation markos, symmetrical, unlabored. ABSENT: rales, rhonchi, wheezes Cardiovascular exam: PRESENT: RRR, +S1, +S2. ABSENT: diastolic murmur, rubs, systolic murmur Pulses: PRESENT: normal dorsalis pedis pul Vascular exam: PRESENT: normal capillary refill GI/Abdominal exam: PRESENT: normal bowel sounds, soft. ABSENT: distended, guarding, mass, organolmegaly, rebound, tenderness Rectal exam: PRESENT: deferred Extremities exam: PRESENT: full ROM. ABSENT: calf tenderness, clubbing, pedal edema Neurological exam: PRESENT: alert, awake, oriented to person, oriented to place , oriented to time, oriented to situation, CN II-XII grossly intact, other - Tremor; weak clinical investigator bilaterally 2/5; week bilateral leg lift with drift R>L ( baseline per pt) 3/5. ABSENT: motor sensory deficit Psychiatric exam: PRESENT: appropriate affect, normal mood. ABSENT: homicidal ideation, suicidal ideation Skin exam: PRESENT: dry, intact, warm. ABSENT: cyanosis, rash Results Impressions: Chest X-Ray 02/16/18 10:51 IMPRESSION: NO ACUTE RADIOGRAPHIC FINDING IN THE CHEST. Head CT 02/16/18 10:51 IMPRESSION: NORMAL BRAIN CT WITHOUT CONTRAST. EVIDENCE OF ACUTE STROKE: NO. Assessment & Plan - Diagnosis (1) Acute renal failure Qualifiers: Acute renal failure type: unspecified Qualified Code(s): N17.9 - Acute kidney failure, unspecified Is this a current diagnosis for this admission?: Yes Plan: Multifactorial; likely prerenal secondary to hypotension during syncopal event, medications (terazosin, lisinopril) dehydration due to nausea/vomiting and reduced p.o. intake. Holding lisinopril and terazosin. Avoid nephrotoxic medications as able. The patient has already received 3 L normal saline bolus between EMS and ED personnel. We will continue gentle IV fluids. We will monitor with serial chemistries. (2) Near syncope Is this a current diagnosis for this admission?: Yes Plan: Unclear etiology; vasovagal, dehydration/orthostatic blood pressures, medication related, arrhythmia Orthostatic vital signs are negative following 3 L NS bolus. EKG demonstrated normal sinus rhythm without abnormal findings. Head CT was negative. Laboratory workup revealed leukocytosis (most likely reactive secondary to near syncope) and BIRDIE. The patient was admitted to the medical floor on continuous cardiac telemetry. We will obtain Carotid Doppler and Echocardiogram. We will continue gentle IV fluids and trend orthostatic blood pressures. We will check TSH, cortisol, hemoglobin A1c with a.m. labs. Minimize sedating medications (holding Flexeril and Requip). PT/OT to evaluate and treat. Consider outpatient event monitor. (3) Diabetes mellitus Qualifiers: Diabetes mellitus type: type 2 Diabetes mellitus skilled nursing insulin use: with skilled nursing use Diabetes mellitus complication detail: with unspecified neuropathy Is this a current diagnosis for this admission?: Yes Plan: Patient is placed on a consistent carb diet. We will continue his home dose Lantus. Accu-Cheks before meals and at bedtime with Humalog for sliding scale coverage. Will check A1c with a.m. lab work. Consider registered dietitian and diabetic education referral. (4) Essential hypertension Is this a current diagnosis for this admission?: Yes Plan: Normotensive at present. Holding lisinopril and hydrochlorothiazide secondary to acute kidney injury. We will provide IV hydralazine as needed for blood pressure control. Consider amlodipine for outpatient management; will trend blood pressured. IV hydralazine as needed for BP controll. (5) Peripheral neuropathy Qualifiers: Peripheral neuropathy type: polyneuropathy, other Qualified Code(s): G62.89 - Other specified polyneuropathies Is this a current diagnosis for this admission?: Yes Plan: Secondary to DM2; not on home medications. Was recently placed on Requip w/ poor tolerance; patient reported nausea with vomiting each time he tried medication despite dose reduction by his primary care provider. We will not initiate gabapentin at this time due to BIRDIE. May consider amitriptyline or Cymbalta. (6) Parkinsons disease Is this a current diagnosis for this admission?: Yes Plan: Patient treated with amantadine, Requip, and Flexeril. Patient reports he only occasionally utilizes Flexeril for muscle spasms. Having side effects with Requip; reports nausea and vomiting with each attempt to take medication. Managing held secondary to acute kidney injury. We will start patient on low-dose Sinemet as there is less concern with regard to renal function, although, does have similar side effect profile with regard to dizziness and fall risk. We will need to monitor closely for side effects. PT/OT evaluation is appreciated. (7) COPD without exacerbation Is this a current diagnosis for this admission?: No Plan: Patient reports history of COPD; he does state that he utilizes maintenance inhalers, however none are listed in his medication reconciliation. He reports that his last admission at outside hospital here nearly qualified for home O2. Lung sounds are clear present and he is currently maintaining oxygen saturations greater than 89% on room air. As needed nebulizer treatments are ordered. We will provide oxygen as needed to maintain oxygen saturations greater than 89% . Consider attempt to requalify patient for oxygen if he is noted to have desaturations overnight or when ambulatory. - Time Time Spent: 50 to 70 Minutes Medications reviewed and adjusted accordingly: Yes Anticipated discharge: Home Within: within 24 hours
[2018-02-16] MEDS ORDERED: DOCUSATE SODIUM 100 MG CAPSULE PO PRN (16:44)
[2018-02-16 17:19] LABS: INTERNATIONAL RATION (INR) 1.08; PROTHROMBIN TIME 14.6 SEC (11.4-15.4)
[2018-02-16 17:37] LABS: NT PRO BNP 123 pg/mL (<450); TROPONIN I < 0.012 ng/mL
[2018-02-16] MEDS: MAGNESIUM SULFATE/D5W 1 GM/100 ML RTUPB IV SCH ×2 (17:39→19:39)
[2018-02-16] MEDS: INSULIN GLARGINE,HUM.REC.ANLOG 300 UNIT/3 ML INSULN.PEN SUBCUT SCH (19:39)
[2018-02-16] MEDS: CARBIDOPA/LEVODOPA 25-100 MG TABLET PO SCH (21:48)
[2018-02-16] MEDS: SIMVASTATIN 40 MG TABLET PO SCH (21:48)
[2018-02-16] MEDS: FAMOTIDINE 20 MG TABLET PO SCH (21:48)
[2018-02-16] MEDS: DOXAZOSIN MESYLATE 1 MG TABLET PO SCH (21:48)
[2018-02-16] MEDS: HEPARIN SOD (PORCINE) 5,000 UNIT/ML 1 ML SYRINGE SUBCUT SCH (21:49)
[2018-02-16] MEDS ORDERED: (PENDING PHARMACY ID) (Terazosin Hcl [Terazosin Hcl] 1 MG) PO SCH (22:00)
[2018-02-16 22:53] LABS: APPEARANCE,URINE CLEAR; BILIRUBIN,URINE NEGATIVE (NEGATIVE); COLOR,URINE YELLOW; GLUCOSE, URINE NEGATIVE (NEGATIVE); KETONES,URINE NEGATIVE (NEGATIVE); LEUKOCYTE ESTERASE,URINE NEGATIVE (NEGATIVE); NITRITE,URINE NEGATIVE (NEGATIVE); PROTEIN,URINE NEGATIVE (NEGATIVE); URINE SPECIFIC GRAVITY 1.016; UROBILINOGEN,URINE NEGATIVE mg/dL (<2.0)
--- NOTE | 2018-02-17 00:03 | EKG REPORT ---
SEVERITY:- NORMAL ECG - SINUS RHYTHM : Confirmed by: Maggi Joaquin MD 17-Feb-2018 00:02:38
[2018-02-17] MEDS: HEPARIN SOD (PORCINE) 5,000 UNIT/ML 1 ML SYRINGE SUBCUT SCH ×3 (05:28→21:44)
[2018-02-17] MEDS: CARBIDOPA/LEVODOPA 25-100 MG TABLET PO SCH ×3 (05:28→21:44)
[2018-02-17 05:53] LABS: HEMATOCRIT 40.1 % (37.9-51.0); HEMOGLOBIN 13.9 g/dL (13.5-17.0); MEAN CORPUSCULAR HEMOGLOBIN 30.9 pg (27.0-33.4); MEAN CORPUSCULAR HGB CONC 34.7 g/dL (32.0-36.0); MEAN CORPUSCULAR VOLUME 89 fl (80-97); PLATELET COUNT 205 10^3/uL (150-450); RED CELL DISTRIBUTION WIDTH 14.1 % (11.5-14.0); WHITE BLOOD COUNT 9.7 10^3/uL (4.0-10.5)
[2018-02-17 06:44] LABS: ALANINE AMINOTRANSFERASE 14 U/L (21-72); ALBUMIN 3.7 g/dL (3.5-5.0); ALKALINE PHOSPHATASE 119 U/L (38-126); ANION GAP 15 (5-19); ASPARTATE AMINO TRANSFERASE 7 U/L (17-59); BILIRUBIN,DIRECT 0.3 mg/dL (0.0-0.4); BILIRUBIN,TOTAL 0.7 mg/dL (0.2-1.3); BLOOD UREA NITROGEN 32 mg/dL (7-20); CALCIUM 8.8 mg/dL (8.4-10.2); CARBON DIOXIDE 20 mmol/L (22-30); CHLORIDE 107 mmol/L (98-107); CHOLESTEROL 118.53 mg/dL (0-200); GLUCOSE 83 mg/dL (75-110); POTASSIUM 4.4 mmol/L (3.6-5.0); SODIUM 141.5 mmol/L (137-145); TOTAL PROTEIN 6.6 g/dL (6.3-8.2); TRIGLYCERIDES 150 mg/dL (<150)
[2018-02-17 06:55] LABS: DIRECT LDL 60 mg/dL (<100)
[2018-02-17] MEDS: NORMAL SALINE 1000 ML 1,000 ML IV PRN ×2 (08:25→17:53)
[2018-02-17] MEDS ORDERED: DOCUSATE SODIUM 100 MG CAPSULE PO SCH (10:00)
[2018-02-17] MEDS: FAMOTIDINE 20 MG TABLET PO SCH ×2 (10:25→21:44)
[2018-02-17] MEDS: CHOLECALCIFEROL (D3) 1,000 UNIT TABLET PO SCH (10:25)
--- NOTE | 2018-02-17 12:04 | XCELERA REPORT ---
[address] [address] Transthoracic Echocardiogram Report Name: JOHANNE FREEMAN Age: 78 yrs Gender: Male : 1940 Patient Status: Inpatient Patient Location: [address] [place] [address] Study Date: 02/17/2018 10:13 AM Height: 76 in Weight: 240 lb BSA: 2.4 m2 Procedure: A complete two-dimensional transthoracic echocardiogram was performed (2D, M-mode, spectral and color flow Doppler). The study was technically adequate with some images being suboptimal in quality. Reason For Study: syncope Ordering Physician: VASILIY BOONE Performed By: Darshan Mcknight Interpretation Summary The left ventricular ejection fraction is normal. There is borderline concentric left ventricular hypertrophy. The left ventricle is grossly normal size. Doppler measurements suggest pseudonormalized left ventricular relaxation, which is associated with grade II/IV or mild to moderate diastolic dysfunction Wall motion cannot be accurately commented on, but no definite regional wall motion abnormalities noted. The right ventricular systolic function is normal. The right atrium is normal in size The left atrial size is normal. There is a mild amount of mitral regurgitation There is no mitral valve stenosis. There is a trace amount of aortic regurgitation There is no aortic valve stenosis There is a mild amount of tricuspid regurgitation There is mild to moderate pulmonary hypertension by echo Right ventricular systolic pressure is estimated to be elevated at 40- 50mmHg. The pulmonic valve is not well visualized. The aortic root is not well visualized but is probably normal size. The inferior vena cava appeared normal and decreased > 50% with respiration (RAP 5-10 mmHg) There is no pericardial effusion. May consider mobile cardiac telemetry monitoring (MCT) for ruling out transient AFIB. other tachy or lauryn arrhythmias. MMode/2D Measurements & Calculations RVDd: 3.0 cm LVIDd: 4.9 cm FS: 35.3 % Ao root diam: 3.0 cm IVSd: 0.54 cm LVIDs: 3.2 cm EDV(Teich): 114.9 ml LVPWd: 0.82 cmESV(Teich): 40.8 ml Ao root area: 6.9 cm2 EF(Teich): 64.5 % LA dimension: 2.8 cm LVOT diam: 2.1 cm LVOT area: 3.3 cm2 Doppler Measurements & Calculations MV E max thea: MV P1/2t max thea: Ao V2 max: LV V1 max P.7 cm/sec 98.3 cm/sec 143.2 cm/sec 4.5 mmHg MV A max thea: MV P1/2t: 69.3 msec Ao max PG: LV V1 max: 125.2 cm/sec MVA(P1/2t): 3.2 cm2 8.2 mmHg 105.6 cm/sec MV E/A: 0.72 MV dec slope: ABEBA(V,D): 2.5 cm2 415.4 cm/sec2 MV dec time: 0.19 sec TV V2 max: PA V2 max: 331.2 cm/sec 80.5 cm/sec TV max PG: PA max P.6 mmHg 43.9 mmHg Left Ventricle The left ventricle is grossly normal size. There is borderline concentric left ventricular hypertrophy. The left ventricular ejection fraction is normal. Doppler measurements suggest pseudonormalized left ventricular relaxation, which is associated with grade II/IV or mild to moderate diastolic dysfunction. Wall motion cannot be accurately commented on, but no definite regional wall motion abnormalities noted. Right Ventricle The right ventricle is grossly normal size. There is normal right ventricular wall thickness. The right ventricular systolic function is normal. Atria The right atrium is normal in size. The left atrial size is normal. Mitral Valve There is mild to moderate mitral leaflet calcification. There is moderate mitral annular calcification. There is no mitral valve stenosis. There is a mild amount of mitral regurgitation. Aortic Valve The aortic valve is sclerotic, but shows no functional abnormality. There is no aortic valve stenosis. There is a trace amount of aortic regurgitation. Tricuspid Valve The tricuspid valve is not well visualized, but is grossly normal. There is no tricuspid stenosis. There is a mild amount of tricuspid regurgitation. There is mild to moderate pulmonary hypertension by echo. Right ventricular systolic pressure is estimated to be elevated at 40-50mmHg. Pulmonic Valve The pulmonic valve is not well visualized. Great Vessels The aortic root is not well visualized but is probably normal size. The inferior vena cava appeared normal and decreased > 50% with respiration (RAP 5-10 mmHg). Effusions There is no pericardial effusion. Incidental Findings May consider mobile cardiac telemetry monitoring (MCT) for ruling out transient AFIB. : VASILIY BOONE > Nilsa Brown
--- NOTE | 2018-02-17 12:24 | PDOC PROGRESS REPORT ---
Subjective Progress Note for:: 02/17/18 Subjective:: Patient was admitted with dehydration, acute kidney injury hypotension and near syncope Reports feeling better now. He has been up with physical therapy with minimal issues. He denies any chest pain nausea vomiting. Reason For Visit: BIRDIE,NEAR SYNCOPE,DEHYDRATION Physical Exam Vital Signs: Temp Pulse Resp BP Pulse Ox 97.8 F 72 17 109/53 L 98 02/17/18 07:22 02/17/18 07:22 02/17/18 07:22 02/17/18 07:22 02/17/18 07:22 Intake & Output 02/16/18 02/17/18 02/18/18 06:59 06:59 06:59 Intake Total 1440 490 Output Total 900 Balance 540 490 Weight 105 kg General appearance: PRESENT: no acute distress, well-developed, well-nourished Head exam: PRESENT: atraumatic, normocephalic Eye exam: PRESENT: conjunctiva pink, EOMI, PERRLA. ABSENT: scleral icterus Ear exam: PRESENT: normal external ear exam Mouth exam: PRESENT: moist, tongue midline Neck exam: ABSENT: carotid bruit, JVD, lymphadenopathy, thyromegaly Respiratory exam: PRESENT: clear to auscultation markos. ABSENT: rales, rhonchi, wheezes Cardiovascular exam: PRESENT: RRR. ABSENT: diastolic murmur, rubs, systolic murmur Pulses: PRESENT: normal dorsalis pedis pul Vascular exam: PRESENT: normal capillary refill GI/Abdominal exam: PRESENT: normal bowel sounds, soft. ABSENT: distended, guarding, mass, organolmegaly, rebound, tenderness Rectal exam: PRESENT: deferred Extremities exam: PRESENT: full ROM. ABSENT: calf tenderness, clubbing, pedal edema Neurological exam: PRESENT: alert, awake, oriented to person, oriented to place , oriented to time, oriented to situation, CN II-XII grossly intact. ABSENT: motor sensory deficit Psychiatric exam: PRESENT: appropriate affect, normal mood. ABSENT: homicidal ideation, suicidal ideation Skin exam: PRESENT: dry, intact, warm. ABSENT: cyanosis, rash Results Laboratory Results: 02/17/18 05:08 02/17/18 05:08 02/16/18 02/17/18 02/17/18 22:38 05:08 05:08 WBC 9.7 RBC 4.50 Hgb 13.9 Hct 40.1 MCV 89 MCH 30.9 MCHC 34.7 RDW 14.1 H Plt Count 205 Sodium 141.5 Potassium 4.4 Chloride 107 Carbon Dioxide 20 L Anion Gap 15 BUN 32 H Creatinine 1.54 H Est GFR ( Amer) 53 L Est GFR (Non-Af Amer) 44 L Glucose 83 Calcium 8.8 Magnesium 1.9 Total Bilirubin 0.7 AST 7 L ALT 14 L Alkaline Phosphatase 119 Total Protein 6.6 Albumin 3.7 Triglycerides 150 Cholesterol 118.53 LDL Cholesterol Direct 60 VLDL Cholesterol 30.0 HDL Cholesterol 28 L TSH Urine Color YELLOW Urine Appearance CLEAR Urine pH 5.0 Ur Specific [place] 1.016 Urine Protein NEGATIVE Urine Glucose (UA) NEGATIVE Urine Ketones NEGATIVE Urine Blood NEGATIVE Urine Nitrite NEGATIVE Ur Leukocyte Esterase NEGATIVE Urine WBC (Auto) 1 Urine RBC (Auto) 0 02/17/18 05:08 WBC RBC Hgb Hct MCV MCH MCHC RDW Plt Count Sodium Potassium Chloride Carbon Dioxide Anion Gap BUN Creatinine Est GFR ( Amer) Est GFR (Non-Af Amer) Glucose Calcium Magnesium Total Bilirubin AST ALT Alkaline Phosphatase Total Protein Albumin Triglycerides Cholesterol LDL Cholesterol Direct VLDL Cholesterol HDL Cholesterol TSH 1.43 Urine Color Urine Appearance Urine pH Ur Specific [place] Urine Protein Urine Glucose (UA) Urine Ketones Urine Blood Urine Nitrite Ur Leukocyte Esterase Urine WBC (Auto) Urine RBC (Auto) 02/16/18 16:39 Troponin I < 0.012 NT-Pro-B Natriuret Pep 123 Impressions: Chest X-Ray 02/16/18 10:51 IMPRESSION: NO ACUTE RADIOGRAPHIC FINDING IN THE CHEST. Head CT 02/16/18 10:51 IMPRESSION: NORMAL BRAIN CT WITHOUT CONTRAST. EVIDENCE OF ACUTE STROKE: NO. Assessment & Plan - Time Time Spent with patient: 15-24 minutes Medications reviewed and adjusted accordingly: Yes Anticipated discharge: Home Within: within 48 hours Disposition: Acute kidney injury likely multifactorial. His creatinine is slightly improved. His lisinopril and terazosin are currently on hold. 2. Syncope echocardiogram is currently pending we will follow-up with results as well as carotid Doppler studies 3. Type 2 diabetes mellitus we will continue sliding scale insulin 4. Benign essential hypertension continue to monitor his blood pressure 5. Peripheral neuropathy secondary to diabetes 6. History of Parkinson's disease currently on amantadine and Requip 7. COPD without exacerbation
--- NOTE | 2018-02-17 12:38 | RADIOLOGY REPORT (SQ) ---
EXAM DESCRIPTION: CAROTID DOPPLER COMPLETED DATE/TIME: 02/17/2018 11:54 am REASON FOR STUDY: multiple near syncopal events COMPARISON: None. TECHNIQUE: Grayscale ultrasound, Doppler velocity and spectra, and color Doppler images acquired of the extra-cranial carotid and vertebral arteries. Images stored on PACS. LIMITATIONS: None. FINDINGS: RIGHT CAROTID CCA Velocities: Within normal limits. ICA Velocities Peak systolic 0.48 m/s. End diastolic 0.14 m/s. Proximal ICA/CCA peak systolic ratio 0.78. Spectra normal. No significant plaque. LEFT CAROTID CCA Velocities: Within normal limits. ICA Velocities Peak systolic 0.56 m/s. End diastolic 0.18 m/s. Proximal ICA/CCA peak systolic ratio 1.1. Mild plaque without significant luminal compromise. VERTEBRAL ARTERIES: Antegrade flow. Normal waveforms. SUBCLAVIAN ARTERIES: No finding. OTHER: No other significant finding. IMPRESSION: NO HEMODYNAMICALLY SIGNIFICANT STENOSIS. COMMENT: Quality ID #[id number]: Velocity criteria are extrapolated from the diameter data as defined by t he Society of Radiologists in Ultrasound Consensus Conference. Radiology 2003: 229; 340-346. TECHNICAL DOCUMENTATION: JOB ID: [id number] [employer]- All Rights Reserved Reading location - IP/workstation name: [email or web address]
[2018-02-17] MEDS: INSULIN GLARGINE,HUM.REC.ANLOG 300 UNIT/3 ML INSULN.PEN SUBCUT SCH (17:53)
[2018-02-17] MEDS: DOXAZOSIN MESYLATE 1 MG TABLET PO SCH (21:43)
[2018-02-17] MEDS: SIMVASTATIN 40 MG TABLET PO SCH (21:44)
[2018-02-18] MEDS: NORMAL SALINE 1000 ML 1,000 ML IV PRN (03:30)
[2018-02-18] MEDS: CARBIDOPA/LEVODOPA 25-100 MG TABLET PO SCH (05:21)
[2018-02-18] MEDS: HEPARIN SOD (PORCINE) 5,000 UNIT/ML 1 ML SYRINGE SUBCUT SCH (05:24)
[2018-02-18] MEDS: CHOLECALCIFEROL (D3) 1,000 UNIT TABLET PO SCH (09:08)
[2018-02-18] MEDS: FAMOTIDINE 20 MG TABLET PO SCH (09:08)
[2018-02-18 10:24] LABS: ANION GAP 15 (5-19); BLOOD UREA NITROGEN 19 mg/dL (7-20); CARBON DIOXIDE 21 mmol/L (22-30); CHLORIDE 107 mmol/L (98-107); GLUCOSE 118 mg/dL (75-110); POTASSIUM 4.7 mmol/L (3.6-5.0); SODIUM 142.8 mmol/L (137-145)
--- NOTE | 2018-02-18 11:19 | PDOC DISCHARGE SUMMARY ---
General - Admit/Disc Date/PCP Admission Date/Primary Care Provider: 02/16/18 14:58 Discharge Date: 02/18/18 - Discharge Diagnosis (1) Acute renal failure Is this a current diagnosis for this admission?: Yes (2) COPD without exacerbation Is this a current diagnosis for this admission?: No (3) Near syncope Is this a current diagnosis for this admission?: Yes (4) Parkinsons disease Is this a current diagnosis for this admission?: Yes (5) Essential hypertension Is this a current diagnosis for this admission?: Yes (6) Diabetes mellitus Is this a current diagnosis for this admission?: Yes - Additional Information Resuscitation Status: Do Not Resuscitate Discharge Activity: Activity As Tolerated Prescriptions: Carbidopa/Levodopa [Sinemet 25-100 mg Tablet] 1 tab PO Q8 #100 tablet Home Medications: Amantadine HCl [Amantadine] 100 mg PO Q12 02/16/18 Cholecalciferol (Vitamin D3) [Vitamin D3 1000 Unit Tablet] 2,000 unit PO DAILY 02/16/18 Cyclobenzaprine HCl [Flexeril 10 mg Tablet] 10 mg PO QHS 02/16/18 Docusate Calcium 240 mg PO DAILYP PRN 02/16/18 Hydrochlorothiazide [Hydrodiuril 25 mg Tablet] 12.5 mg PO QAM 02/16/18 Insulin Glargine,Hum.rec.anlog [Lantus Solostar] 25 unit SQ QPM 02/16/18 Lisinopril [Prinivil 40 mg Tablet] 20 mg PO DAILY 02/16/18 Methyl Salicylate/Menthol [[facility] [place] 29 gm] 1 applic TP BIDP PRN Simvastatin [Zocor 40 mg Tablet] 40 mg PO QHS 02/16/18 Terazosin HCl 1 mg PO QHS 02/16/18 Carbidopa/Levodopa [Sinemet 25-100 mg Tablet] 1 tab PO Q8 #100 tablet 02/18/18 History of Present Illness History of Present Illness: JOHANNE FREEMAN is a 78 year old male with a past medical history significant for insulin-dependent diabetes mellitus , PE, hypertension, hyperlipidemia, COPD (not home O2 dependent) and PTSD who presented to the emergency department from his primary care provider with a complaint of near syncope and found to be hypotensive with blood pressures 70s/ 40s that responded with fluid boluses; now 143/63. Per patient, he did not lose consciousness or exhibit seizure-like activity, but did feel lightheaded with tunnel vision, tinnitus, and nausea without emesis. He believes that his symptoms may be related to Requip; reports that he has had dizziness and intermittent nausea and vomiting when he takes this medication despite dose reduction. He also feels that this may be related to his COPD stating that he recently was told he did not qualify to home oxygen due to "being 1 point too high ". He does report that he felt short of breath prior to his near syncopal event at his primary care's office this morning. Hospital Course Hospital Course: Patient was admitted with near syncopal episode after being sent from the PCPs office where he was found to be hypotensive. He was given IV fluids and by the time he got to the emergency room his blood pressure was at 143/63. Patient was found to have an acute kidney injury with his creatinine at 1.83 and this is improved to 1.2 today with IV fluids. He was also mildly azotemic likely from the dehydration and this is also improved. Because of his kidney function and dehydration patient's diuretic and antihypertensives were held as well as some of his other medications but this had been restarted now at discharge. He will need further evaluation and adjustment of his antihypertensive as outpatient. With stable hemodynamics and resolution of presenting symptoms patient is been discharged home. Physical Exam Vital Signs: Temp Pulse Resp BP Pulse Ox 97.7 F 75 18 136/63 H 97 02/18/18 07:10 02/18/18 08:15 02/18/18 08:15 02/18/18 07:10 02/18/18 08:15 Intake & Output 02/17/18 02/18/18 02/19/18 06:59 06:59 06:59 Intake Total 1440 2490 Output Total 900 1900 Balance 540 590 Weight 105 kg 104.6 kg General appearance: PRESENT: no acute distress, well-developed, well-nourished Head exam: PRESENT: atraumatic, normocephalic Eye exam: PRESENT: conjunctiva pink, EOMI, PERRLA. ABSENT: scleral icterus Ear exam: PRESENT: normal external ear exam Mouth exam: PRESENT: moist, tongue midline Neck exam: ABSENT: carotid bruit, JVD, lymphadenopathy, thyromegaly Respiratory exam: PRESENT: clear to auscultation markos. ABSENT: rales, rhonchi, wheezes Cardiovascular exam: PRESENT: RRR. ABSENT: diastolic murmur, rubs, systolic murmur Vascular exam: PRESENT: normal capillary refill GI/Abdominal exam: PRESENT: normal bowel sounds, soft. ABSENT: distended, guarding, mass, organolmegaly, rebound, tenderness Rectal exam: PRESENT: deferred Extremities exam: PRESENT: full ROM. ABSENT: calf tenderness, clubbing, pedal edema Neurological exam: PRESENT: alert, awake, oriented to person, oriented to place , oriented to time, oriented to situation, CN II-XII grossly intact. ABSENT: motor sensory deficit Psychiatric exam: PRESENT: appropriate affect, normal mood. ABSENT: homicidal ideation, suicidal ideation Skin exam: PRESENT: dry, intact, warm. ABSENT: cyanosis, rash Results Laboratory Results: 02/17/18 05:08 02/18/18 09:39 02/18/18 09:39 Sodium 142.8 Potassium 4.7 Chloride 107 Carbon Dioxide 21 L Anion Gap 15 BUN 19 Creatinine 1.17 Est GFR ( Amer) > 60 Est GFR (Non-Af Amer) > 60 Glucose 118 H Calcium 9.0 02/16/18 16:39 Troponin I < 0.012 NT-Pro-B Natriuret Pep 123 Impressions: Chest X-Ray 02/16/18 10:51 IMPRESSION: NO ACUTE RADIOGRAPHIC FINDING IN THE CHEST. Head CT 02/16/18 10:51 IMPRESSION: NORMAL BRAIN CT WITHOUT CONTRAST. EVIDENCE OF ACUTE STROKE: NO. Carotid Doppler Study 02/17/18 00:00 IMPRESSION: NO HEMODYNAMICALLY SIGNIFICANT STENOSIS. Qualifiers - * PATIENT BEING DISCHARGED WITH ANY OF THE FOLLOWING DIAGNOSIS: No Plan Time Spent: Greater than 30 Minutes
[2018-02-18 11:58] VITALS: BP 136/77
== END 2018-02-18 12:35 | disposition home or self-care (01) ==
LOC: ER 10:16 → INTOOBSV 14:58 → EH 14:58 → 3W 17:08
PROVIDERS: ADMIT Internal Medicine; ATTEND Internal Medicine
DX: N17.9 Acute kidney failure, unspecified (principal); J44.9 Chronic obstructive pulmonary disease, unspecified; R55 Syncope and collapse; G20 Parkinson's disease; I10 Essential (primary) hypertension; F43.10 Post-traumatic stress disorder, unspecified; I95.9 Hypotension, unspecified; H53.489 Generalized contraction of visual field, unspecified eye; H93.19 Tinnitus, unspecified ear; E86.0 Dehydration; R79.89 Other specified abnormal findings of blood chemistry; D72.829 Elevated white blood cell count, unspecified; E83.42 Hypomagnesemia; E11.42 Type 2 diabetes mellitus with diabetic polyneuropathy; R11.2 Nausea with vomiting, unspecified; T42.8X5A Adverse effect of antiparkinsonism drugs and other central muscle-tone depressants, initial encounter; Z90.49 Acquired absence of other specified parts of digestive tract; Z87.891 Personal history of nicotine dependence; Z66 Do not resuscitate; Z79.899 Other long term (current) drug therapy; Z79.4 Long term (current) use of insulin; Z86.711 Personal history of pulmonary embolism; Z82.49 Family history of ischemic heart disease and other diseases of the circulatory system; Z82.3 Family history of stroke
CPT/HCPCS: 93005; 99285; 36415 ×3; 82553; 82962 ×3; 82550; 83690; 83735 ×2; 84443; 85025; 85027; 85610; 85730; 80048; 80053 ×2; 81001; 84484; 82533; 83036; 80061; 83880; 93306; 93880; 71045; 70450; 93010; 97530 ×2; 97110; 97116; 97163; 97535; 97167; G0378 ×4; J3490 ×4; J1644 ×3; J1815; J3475; J2405; J7030 ×3; G8978; G8979; G8987; G8988

== ENCOUNTER 2018-02-25 08:50 | Emergency (ER) | payer OTHER, MEDICARE ==
[2018-02-25] MEDS ORDERED: CALCIUM GLUCONATE 1000 MG/10 ML INJ IV ONE (09:00)
--- NOTE | 2018-02-25 10:21 | ER Document Report ---
ED General - General Stated Complaint: UNRESPONSIVE Time Seen by Provider: 02/25/18 09:08 TRAVEL OUTSIDE OF THE [place] IN LAST 30 DAYS: No - HPI Notes: Note patient presents in cardiac arrest, history is unobtainable, all history and information comes via prehospital providers. This is an 78-year-old male who apparently called EMS was found to be dyspneic and diaphoretic on EMS arrival. Initial ECG showed inferior STEMI. Shortly after arrival he went into asystole arrest. During his 25-30 minute prehospital time, he was intermittently in cardiac arrest and back into a perfusing rhythm. Unknown his antecedent chest pain. He allegedly was seen in the emergency department yesterday for an unrelated complaint. Minimal other information is available. He presents via EMS with a right tibial IO, intubated with a 7.5 endotracheal tube. He is in cardiac arrest upon arrival with CPR in progress. - Related Data Allergies/Adverse Reactions: Influenza Virus Vaccines [Influenza Virus Vaccine] Allergy (Severe, Verified 15:07) severe flu symptoms Past Medical History - Social History Smoking Status: Unknown if Ever Smoked Family History: Reviewed & Not Pertinent, CVA, Hypertension - Past Medical History Cardiac Medical History: Reports: Hx Hypercholesterolemia, Hx Hypertension Denies: Hx Congestive Heart Failure, Hx Coronary Artery Disease, Hx Heart Attack Pulmonary Medical History: Reports: Hx COPD Denies: Hx Asthma Neurological Medical History: Denies: Hx Seizures Endocrine Medical History: Reports: Hx Diabetes Mellitus Type 2 - Insulin- dependent Renal/ Medical History: Denies: Hx Peritoneal Dialysis GI Medical History: Denies: Hx Diverticulitis, Hx Gastroesophageal Reflux Disease, Hx Hiatal Hernia, Hx Ulcer Musculoskeletal Medical History: Reports Hx Arthritis Psychiatric Medical History: Reports: Hx Depression, Hx Post Traumatic Stress Disorder Past Surgical History: Reports: Hx Cholecystectomy, Hx Herniorrhaphy, Other - Prostate. Denies: Hx Open Heart Surgery - Immunizations Hx Diphtheria, Pertussis, Tetanus Vaccination: Yes Review of Systems - Review of Systems -: Yes ROS unobtainable due to patient's medical condition Physical Exam - Notes Notes: General: Well devloped, no acute distress. HEENT: Normocephalic, atraumatic. Pupils are relatively fixed, mildly dilated. Endotracheal tube in place. Chest: No trauma, Respiratory: Symmetric air exchange, scattered rhonchi Cardiac: Heart tones. Abdomen: Soft, benign. Distention noted. Back: No asymmetry or gross abnormality. Motor: Absent tone and power. Neurologic: A intubated, GCS 3.. Vascular: Poor peripheral perfusion Skin: No petechiae or purpura Course - Re-evaluation Re-evalutation: 02/25/18 10:19 Critically ill male presents for a cardiac arrest. ACLS protocols were continued. Patient received multiple rounds of epinephrine, at one point received atropine when he had a bradycardic rhythm at 40. Also received a single amp of sodium bicarbonate. He also received TNK during 1 of his return of spontaneous circulation periods. Prehospital ECG is reviewed and shows inferior ST segment elevation. Patient received empiric calcium chloride with no change. Patient had aggressive therapy in the ED and his total resuscitation time from initial arrest was well over 60 minutes. Multiple ultrasound showed minimal if any cardiac activity. Of note, despite having an elevated end-tidal CO2, his cardiac activity was absent. Was ultimately able to speak with patient's daughter who indicated that he was DNR. This order was unavailable prior to this. Given the lack of efficacy of heroic measures and his stated DNR status per daughter, resuscitation was terminated at the time listed on resuscitation sheet. At the time of termination resuscitation patient just entered asystole. Discharge - Discharge Clinical Impression: Cardiac arrest Condition: Critical Disposition:
[2018-02-25] MEDS ORDERED: SODIUM BICARBONATE 8.4% INJ 50 MEQ/50 ML DISP.SYRIN ONE (11:13)
[2018-02-25] MEDS ORDERED: ATROPINE SULFATE INJ 1 MG/10 ML DISP.SYRIN IV ONE (11:13)
[2018-02-25] MEDS ORDERED: EPINEPHRINE INJ 1 MG/10 ML DISP.SYRIN ONE (11:13)
[2018-02-25] MEDS ORDERED: TENECTEPLASE INJ 50 MG KIT IV ONE (15:23)
== END 2018-02-25 11:07 | disposition expired ==
LOC: ER 08:50
DX: I46.9 Cardiac arrest, cause unspecified (principal); R14.0 Abdominal distension (gaseous); I10 Essential (primary) hypertension; J44.9 Chronic obstructive pulmonary disease, unspecified; Z88.7 Allergy status to serum and vaccine; Z66 Do not resuscitate
CPT/HCPCS: 99285; 92950; 96374; 96375; J3101; J0461; J0171; J3490